=== PATIENT | male | born 1980 ===

== ENCOUNTER 2016-04-25 13:18 | Emergency (ER) | payer OTHER ==
[2016-04-25 16:40] VITALS: BP 155/91
--- NOTE | 2016-04-25 17:29 | UC ---
Ear Complaint HPI - HPI Summary HPI Summary: 36 yo male with left otalgia and decreased hearing x days no URI symptoms no f/c hurts to chew or touch ear - History of Current Complaint Chief Complaint: UCEar Stated Complaint: EAR COMPLAINT Time Seen by Provider: 04/25/16 17:15 Hx Obtained From: Patient Onset/Duration: Gradual Onset, Lasting Days Severity Initially: Severe Severity Currently: Severe Pain Intensity: 8 - unable to sleep Pain Scale Used: 0-10 Numeric Alleviating Factors: Nothing Associated Signs/Symptoms: Positive: Hearing Loss, Swelling @ - Allergies/Home Medications Allergies/Adverse Reactions: Allergies Allergy/AdvReac Type Severity Reaction Status Date / Time Sulfa Antibiotics Allergy Itching Verified 04/25/16 16:40 Home Medications: Home Medications Acetaminophen [Extra Strength Acetaminop] 1,500 mg PO ONCE PRN 04/25/16 [ History Confirmed 04/25/16] PMH/Surg Hx/FS Hx/Imm Hx Previously Healthy: Yes Endocrine History Of: Denies: Diabetes Cardiovascular History Of: Denies: Hypertension, Pacemaker/ICD - Surgical History Surgical History: Yes Surgery Procedure, Year, and Place: 1999 RT SHOULDER ROTATOR CUFF X 3 MOST RECENT 2013, [facility] - Family History Known Family History: Positive: Hypertension - Social History Alcohol Use: None Substance Use Type: None Smoking Status (MU): Heavy Every Day Tobacco Smoker Type: Cigarettes Amount Used/How Often: 1 PPD Length of Time of Smoking/Using Tobacco: 20 Review of Systems Constitutional: Negative Skin: Negative Eyes: Negative ENT: Ear Ache Respiratory: Negative Cardiovascular: Negative Gastrointestinal: Negative Genitourinary: Negative Motor: Negative Neurovascular: Negative Musculoskeletal: Negative Neurological: Negative Psychological: Negative All Other Systems Reviewed And Are Negative: Yes Physical Exam Triage Information Reviewed: Yes Appearance: Well-Appearing, No Pain Distress, Well-Nourished Vital Signs: Initial Vital Signs Temp 98.7 F 04/25/16 16:32 Pulse 97 04/25/16 16:32 Resp 16 04/25/16 16:32 BP 155/91 04/25/16 16:32 Pulse Ox 99 04/25/16 16:32 Vital Signs Reviewed: Yes Eyes: Positive: Conjunctiva Clear ENT: Positive: TMs normal, Other: - left tragal and auricular pain. Negative: Hearing grossly normal Neck: Positive: Supple, Nontender Respiratory Exam: Normal Respiratory: Positive: Lungs clear, Normal breath sounds, No respiratory distress Cardiovascular: Positive: RRR, No Murmur Neurological: Positive: Alert Psychological Exam: Normal Skin Exam: Normal Ear Complaint Course/Dx - Differential Dx/Diagnosis Provider Diagnoses: left otitis externa Discharge - Discharge Plan Condition: Stable Disposition: HOME Prescriptions: Cephalexin CAP* [Keflex CAP*] 500 mg PO QID #28 cap HYDROcodone/ACETAMIN 5-325 MG* [Rougon 5-325 TAB*] 1 tab PO Q4H PRN #15 tab MDD 6 PRN Reason: Pain Neomyc/Polym/HC 1% OTIC SUSP* [Cortisporin Otic Susp 1%*] 4 drop LEFT EAR QID # 1 btl Patient Education Materials: Otitis Externa (ED) Referrals: Lucia Fabian NP [Primary Care Provider] - 3 Days
== END 2016-04-25 17:30 | disposition home or self-care (01) ==
LOC: UCCORT 13:18
DX: H60.92 Unspecified otitis externa, left ear (principal); Z88.2 Allergy status to sulfonamides; F17.210 Nicotine dependence, cigarettes, uncomplicated
CPT/HCPCS: 99212; G0463